=== PATIENT | male | born 1960 | race American Indian/Alaskan Native ===

== ENCOUNTER 2016-09-12 16:27 | Emergency (ER) | payer OTHER ==
[2016-09-12] MEDS ORDERED: CATAPRES PO ONE (17:07)
[2016-09-12] MEDS ORDERED: NORVASC PO ONE (17:52)
[2016-09-12] MEDS ORDERED: FUL-GLO OP ONE (18:01)
[2016-09-12] MEDS ORDERED: NACL 0.9% 500 ML IR ONE (18:02)
[2016-09-12] MEDS ORDERED: TETRACAINE 0.5% ONE (18:02)
[2016-09-12] MEDS ORDERED: BSS 1 DROPS, TETRACAINE 0.5% 1 DROPS, FUL-GLO 1 MG OS ONE (18:15)
--- NOTE | 2016-09-12 18:56 | Admit Criteria Form ---
Admission Criteria Documentation: HYPERTENSION Clinical Indications for Admission to Inpatient Care ( [place]/check or initial the applicable condition/criteria) Admission is indicated for 1 or more of the following(1)(2)(3)(4)(5)(6)(7)(8)(9) (10): [ ]I. Hypertensive emergency, with evidence of acute and progressing target organ disease as indicated by 1 or more of the following: [ ]a) Hypertensive encephalopathy (e.g., confusion, altered mental status) (11) [ ]b) Cerebral infarction [ ]c) Intracranial hemorrhage [ ]d) Myocardial ischemia or infarction [ ]e) Heart failure (eg. Pulmonary edema) [ ]f) Aortic dissection [ ]g) Increased creatinine (new) with reduction of more than 50% in estimated glomerular filtration rate from baseline [ ]h) Seizure [ ]i) Papilledema [ ]j) Retinal hemorrhage [ ]k) Microangiopathic hemolytic anemia [ ]l) Other significant finding secondary to hypertension [ ]II. Adrenergic or sympathomimetic crisis (e.g., severe hypertension due to pheochromocytoma crisis, cocaine, phencyclindine, or amphetamine intoxication, or clonidine withdrawal) [X]III. Severe hypertension (SBP greater than 180 mmHg or DBP greater than 110 mmHg or greater than the 95th percentile for age, gender, and height in pediatric patients) that cannot be controlled (e.g., to SBP less than 160 mmHg and DBP less than 100 mmHg in adults) by treatment with oral medication in emergency department or observation care (12) Extended stay beyond goal length of staymay be needed for(21)(22): [ ]a) Persistent hypertensive encephalopathy [ ]b) Continuation of pulmonary edema [ ]c) Recurring or persistent severe hypertension [ ]d) Target organ damage (eg, angina, stroke, aortic dissection) The original [employer] content created by [employer] has been revised. The portions of the content which have been revised are identified through the use of italic text or in bold, and [employer] has neither reviewed nor approved the modified material. All other unmodified content is copyright [employer]. Please see references footnoted in the original [employer] edition 2016
--- NOTE | 2016-09-12 19:58 | Emergency Department Report ---
Eye Injury/Foreign Body - HPI Duration: Today Eye Location: Left Severity: Moderate Eye Symptoms: Eye Pain: Yes, Blurred Vision: Yes, Eye Redness: No, Grinding/ Hammering Metal: No, Used Eye Protection: No, Contact Lens Use: No, Recalls Injury: No, Photophobia: No Other History: 56-year-old male with past medical history of hypertension presents to emergency department complaining of left eye pain secondary to getting freon in his eye. 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 He states he tried to rinse the eye underneath the sink and tried to irrigate the eye however he still had blurry vision and pain therefore he presented to the ED. Patient denies headache, neck pain, chest pain. ED Review of Systems ROS: Stated complaint: CAN'T SEE OUT LT EYE Other details as noted in HPI Constitutional: denies: chills, fever Eyes: eye pain, vision change. denies: eye discharge ENT: denies: ear pain, throat pain Respiratory: denies: cough, shortness of breath, wheezing Cardiovascular: denies: chest pain, palpitations Endocrine: no symptoms reported Gastrointestinal: denies: abdominal pain, nausea, diarrhea Genitourinary: denies: urgency, dysuria Musculoskeletal: denies: back pain, joint swelling, arthralgia Skin: denies: rash, lesions Neurological: denies: headache, weakness, paresthesias Psychiatric: denies: anxiety, depression Hematological/Lymphatic: denies: easy bleeding, easy bruising ED Past Medical Hx - Past Medical History Previous Medical History?: Yes - Surgical History Past Surgical History?: No - Social History Smoking Status: Never Smoker Substance Use Type: Alcohol, Prescribed - Medications Home Medications: Home Medications Medication Instructions Recorded Confirmed Last Taken Type Erythromycin [Erythromycin Ophth 10 applic OP DAILY #1 tube 09/12/16 Unknown Rx Oint] HYDROcodone/APAP 5-325 [[place] 1 each PO Q6HR PRN #10 tablet 09/12/16 Unknown Rx 5/325] RX: amLODIPine [Norvasc] 10 mg PO DAILY #30 tab 09/12/16 Unknown Rx Eye Injury Exam - Exam General: Vital signs noted. No distress. Alert and acting appropriately. After 1L irrigation I performed eye exam Vision O.D. 20/30, Vision O.S. 20/40. No corneal abraison bilaterally. No hyphema. PH in BL 7.0 No exudate HEENT: NC/AT, PERRLA, EOMI, no erythema appreciate in BL eyes CVS: +S1/S2, RRR. PULM: CTA BL, no wheeze. Neuro: AAOX4, steady gait, no focal defiicts. Neck: normal ROM, no meningeal signs ED Course Vital Signs 09/12/16 09/12/16 09/12/16 16:59 17:14 17:57 Temperature 98.3 F Pulse Rate 88 88 84 Respiratory 20 Rate Blood Pressure 238/134 238/134 202/112 O2 Sat by Pulse 98 Oximetry - Reevaluation(s) Reevaluation #1: 09/12/16 19:58 he states he is completely asymptomatic. He agrees he is stable to discharge home 09/12/16 20:25 ED Medical Decision Making - Medical Decision Making This is a 56-year-old male with past medical history of hypertension presenting to the emergency department with left eye pain and hypertension. Concerning eye pain, likely this is secondary to freon that was splashed into patient's eyes. After 1 L saline irrigation patient has: normal pH, normal vision, and no pain in his eye. Patient agrees from ophthalmology standpoint he is stable discharge home and follow-up in EYE clinic. Concerning his blood pressure patient states likely the elevation was secondary to pain. He states he is on hypertensive meds he does not know the name however he takes them daily. He states he is not on amlodipine therefore I will start patient on amlodipine and follow with PCP for close blood pressure monitoring. pt has no headache nor neurological deficits that could concern me for HTN emergency. Patient agrees to d/c plan has no questions. Critical Care Time: No Critical care attestation.: If time is entered above; I have spent that time in minutes in the direct care of this critically ill patient, excluding procedure time. ED Disposition Clinical Impression: Iritis, Hypertension Disposition: PAT REG,NO TRIAGE Is pt being admited?: No Does the pt Need Aspirin: No Condition: Stable Instructions: Hypertension (ED) Prescriptions: RX: amLODIPine [Norvasc] 10 mg PO DAILY #30 tab Erythromycin [Erythromycin Ophth Oint] 10 applic OP DAILY #1 tube HYDROcodone/APAP 5-325 [[place] 5/325] 1 each PO Q6HR PRN #10 tablet PRN Reason: Pain Referrals: TAWANA SMITH MD, PHD [Staff Physician] - 24 Hours KESHIA ULLOA MD [Staff Physician] - 2-3 Days Forms: Work/School Release Form(ED)
[2016-09-12 20:21] VITALS: BP 169/106
== END 2016-09-12 20:56 | disposition left against medical advice (07) ==
LOC: ED 16:27
DX: H20.9 Unspecified iridocyclitis (principal); I10 Essential (primary) hypertension
CPT/HCPCS: 93005; 93010; 99283